=== PATIENT | female | born 1995 | race American Indian/Alaskan Native ===

== ENCOUNTER 2017-03-05 09:36 | Inpatient (IN) | payer BC ==
[2017-03-05] MEDS ORDERED: Vancomycin 1 g Inj ONE (09:59)
--- NOTE | 2017-03-05 10:11 | ED PDOC ---
HPI: Eye Injury/Pain Time Seen by Provider: 03/05/17 09:50 Chief Complaint (Nursing): Abnormal Skin Integrity Chief Complaint (Provider): Abnormal Skin Integrity History Per: Patient History/Exam Limitations: no limitations Onset/Duration Of Symptoms: Hrs Current Symptoms Are (Timing): Still Present Injury To Eye?: No Severity: Severe Quality: "Pain" Wears Contact Lens?: No Associated Symptoms: Pain, Decreased Vision, Swelling, Discharge From Eye Additional Complaint(s): Patient is a 21 year old female who presents to ED for left eye swelling and pain that worsened this morning. Patient states symptoms began as a mild rash to left upper lip 3 days ago but has gradually worsened, this morning awoke with right eye completely swollen and a diffuse itchy rash. Denies blurred vision or ear pain. Notes she was evaluated by Urgent care this morning, believed to be infectious, not allergic but administered Benadryl 50mg IM due to urticaria type rash. Patient denies headache, neck pain or fever. Past Medical History Reviewed: Historical Data, Nursing Documentation, Vital Signs Vital Signs: Last Vital Signs Temp 97.9 F 03/05/17 09:51 Pulse 104 H 03/05/17 09:51 Resp 18 03/05/17 09:51 BP 123/75 03/05/17 09:51 Pulse Ox 99 03/05/17 09:51 - Medical History PMH: No Chronic Diseases Denies: Chronic Kidney Disease - Surgical History Surgical History: Tonsillectomy - Family History Family History: States: No Known Family Hx - Living Arrangements Living Arrangements: With Family - Home Medications Home Medications: Ambulatory Orders Medication Instructions Recorded No Known Home Med 03/05/17 - Allergies Allergies/Adverse Reactions: Allergies Allergy/AdvReac Type Severity Reaction Status Date / Time fluconazole [From Diflucan] Allergy RASH Verified 03/05/17 09:50 Blackberries Allergy RASH Uncoded 03/05/17 09:51 Rasberries Allergy RASH Uncoded 03/05/17 09:51 Review of Systems ROS Statement: Except As Marked, All Systems Reviewed And Found Negative Constitutional: Negative for: Fever, Chills Eyes: Positive for: Pain, Eyelid Inflammation, Redness ENT: Negative for: Ear Pain, Nose Discharge Respiratory: Negative for: Shortness of Breath Musculoskeletal: Negative for: Neck Pain Skin: Positive for: Rash Neurological: Negative for: Weakness, Numbness, Headache Physical Exam - Reviewed Nursing Documentation Reviewed: Yes Vital Signs Reviewed: Yes - Physical Exam Appears: Positive for: Uncomfortable Skin: Positive for: Normal Color, Warm, Rash (mild scattered rash to chest and bilateral eyes ) Eye Exam: Positive for: Normal appearance (right), EOMI, PERRL, Periorbital swelling (Left: with erythema), Periorbital tenderness (left), Other (No proptosis, no pain with EOM). Negative for: Nystagmus, Conjunctival injection, Scleral icterus ENT: Negative for: Normal ENT Inspection (Honey crusted lesion to left lateral lip) Cardiovascular/Chest: Positive for: Regular Rate, Rhythm. Negative for: Murmur Respiratory: Positive for: Normal Breath Sounds. Negative for: Respiratory Distress Extremity: Positive for: Normal ROM Neurologic/Psych: Positive for: Alert, Oriented - Laboratory Results Result Diagrams: 03/08/17 06:10 03/08/17 06:10 - ECG O2 Sat by Pulse Oximetry: 99 (RA) Pulse Ox Interpretation: Normal - CT Scan/US CT orbits Other Rad Studies (CT/US): Radiology Report Reviewed (Significant left-sided facial soft tissue swelling consistent with cellulitis. Epicenter is located the periorbital region although does extend extend inferiorly into the left premaxillary soft tissues, laterally into the left lateral periorbital soft tissues and superiorly into the left supraorbital and left frontotemporal scalp. No evidence of abscess collection of. No definitive of postseptal extension.) Medical Decision Making Medical Decision Making: Time: 0950 Initial impression: Eye swelling r/o infectious vs allergic Initial plan: -- CT- orbits/facial -- CMP -- Urine preg -- CBC -- PT/PTT -- Blood culture -- Vanco IV Scribe Attestation: Documented by Magui Coelho acting as a scribe for Nelida Prajapati MD MD Scribe Attestation: All medical record entries made by the Scribe were at my direction and personally dictated by me. I have reviewed the chart and agree that the record accurately reflects my personal performance of the history, physical exam, medical decision making, and the department course for this patient. I have also personally directed, reviewed, and agree with the discharge instructions and disposition. Disposition - Clinical Impression Clinical Impression: Periorbital cellulitis of left eye - Patient ED Disposition Is Patient to be Admitted: Yes - Disposition Disposition Time: 14:35 Condition: STABLE - Pt Status Changed To: Hospital Disposition Of: Inpatient - Admit Certification Admit to Inpatient:: After my assessment, the patient will require hospitalization for at least two midnights. This is because of the severity of symptoms shown, intensity of services needed, and/or the medical risk in this patient being treated as an outpatient. - POA Present On Arrival: None
[2017-03-05 10:42] LABS: BASO # 0.1 K/uL (0.0-0.2); BASO % 0.7 % (0.0-2.0); EOS # 0.5 K/uL (0.0-0.7); EOS % 4.9 % (0.0-4.0); HEMATOCRIT 42.8 % (34.0-47.0); LYMPH % 39.1 % (20.0-40.0); MEAN CELL VOLUME 88.7 fl (81.0-99.0); MEAN CORPUSCULAR HEMOGLOBIN 29.2 pg (27.0-31.0); MEAN CORPUSCULAR HGB CONC 32.9 g/dL (33.0-37.0); MEAN PLATELET VOLUME 8.5 fl (7.2-11.7); MONO # 0.6 K/uL (0.0-0.8); MONO % 6.3 % (0.0-10.0); RED CELL DISTRIBUTION WIDTH 12.7 % (11.5-14.5); WHITE BLOOD COUNT 10.1 K/uL (4.8-10.8)
[2017-03-05 10:56] LABS: ALB/GLOB RATIO 1.1 (1.0-2.1); ALKALINE PHOSPHATASE 67 U/L (38-126); ALT/SGPT 63 U/L (9-52); AST/SGOT 43 U/L (14-36); BILIRUBIN,TOTAL 0.4 mg/dl (0.2-1.3); BLOOD UREA NITROGEN 14 mg/dl (7-17); CALCIUM 9.7 mg/dL (8.4-10.2); CARBON DIOXIDE 26 mmol/L (22-30); CHLORIDE 103 mmol/L (98-107); GFR AFRICAN-AMERICAN > 60; GLUCOSE,RANDOM 83 mg/dL (65-105); POTASSIUM 4.1 MMOL/L (3.6-5.0); SODIUM 140 mmol/l (132-148); TOTAL PROTEIN 8.4 G/DL (6.3-8.2)
[2017-03-05] MEDS ORDERED: Iohexol 300 100 ML IJ ONE (12:36)
[2017-03-05] MEDS ORDERED: Sodium Chloride 0.9% 50 ML IV ONE (12:37)
--- NOTE | 2017-03-05 14:16 | CT ---
PROCEDURE: CT scan orbits dated 03/05/2017 HISTORY: Left-sided periorbital edema -cellulitis. COMPARISON: None available. TECHNIQUE: Contiguous helical/ transaxial l CT images of the orbits were obtained of following intravenous injection of approximately 90 cc Omnipaque 300 contrast material. . Coronal and sagittal reformats were generated. Radiation dose: Total exam DLP = 752.09 mGy-cm. This CT exam was performed using one or more of the following dose reduction techniques: Automated exposure control, adjustment of the mA and/or kV according to patient size, and/or use of iterative reconstruction technique. FINDINGS: The current study reveals moderate to fairly significant left-sided facial soft tissue swelling, the epicenter of which appears to be in the left periorbital soft tissues with extension inferiorly into the left premaxillary region as well left lateral the periorbital and left supraorbital/ frontotemporal soft tissues. All of these inflammatory changes appear to be the preseptal with no definitive postseptal extension. No definitive on abscess collections are identified. Bony orbits appear intact. Globes intact and lenses appropriately located. No retrobulbar hemorrhages or collections. Optic nerves and extraocular musculature appear unremarkable. The visualized paranasal sinuses relatively well-developed. There are no fluid levels seen to suggest acute sinusitis or hemorrhage. Minor mucosal thickening seen within the maxillary antra left slightly more so than right of. The remaining visualized paranasal sinuses are otherwise free of any significant mucoperiosteal inflammatory changes. No bony destructive or sclerotic changes. . The sinus drainage outflow tracts are patent. Nasal septum midline. Impression: Significant left-sided facial soft tissue swelling consistent with cellulitis. Epicenter is located the periorbital region although does extend extend inferiorly into the left premaxillary soft tissues, laterally into the left lateral periorbital soft tissues and superiorly into the left supraorbital and left frontotemporal scalp. No evidence of abscess collection of. No definitive of postseptal extension. See above discussion for additional findings and details.
--- NOTE | 2017-03-05 15:04 | CP.PCM.HP ---
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 No WBC, afebrile, renal funtion high normal. Vitals are stable no acute distress. ROS: as per HPI, all other systems reviewed and negative by me PMH: denies PSH: denies Family History: denies Social History: denies tobacco, ETOH, IVDU Home Medications: control Allergies: fluconazole, blackberries and raspberries Vitals stable and reviewed Constitutional- cooperative, awake, alert. Head- L periorbital swelling, closing eye, no visual changes. Mouth, honey crusted lesions. Eye- PERRL, normal accommodation ENT- normal exam, MMM. Neck- normal inspection, supple, no JVD Respiratory- decreased BS, no wheezes rales rhonchi Cardiovascular- RRR, +S1, +S2 no MRG GI/Abdominal- normal bowel sounds, soft Extremities Exam- normal capillary refill, normal inspection Neurological Exam- alert, oriented Labs: 03/05/17 10:10 03/05/17 10:10 Imaging Studies: Facial Bones CT: Significant L sided facial soft tissue swelling consistent with cellulitis. 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 No WBC, afebrile, renal funtion high normal. Impetigo and L Periorbital and Facial Cellulitis No WBC afebrile Facial Bones CT: Significant L sided facial soft tissue swelling consistent with cellulitis. Continue Vancomycin 1gm q12 H Patient does not complain of pain Ophtalmology Consult Dr. Herrera Present on Admission - Present on Admission Any Indicators Present on Admission: No Past Patient History - Past Social History Smoking Status: Never Smoked - CARDIAC Hx Cardiac Disorders: No - PULMONARY Hx Respiratory Disorders: No - NEUROLOGICAL Hx Neurological Disorder: No - HEENT Hx HEENT Problems: No - RENAL Hx Chronic Kidney Disease: No - ENDOCRINE/METABOLIC Hx Endocrine Disorders: No - HEMATOLOGICAL/ONCOLOGICAL Hx Blood Disorders: No - INTEGUMENTARY Hx Dermatological Problems: No - MUSCULOSKELETAL/RHEUMATOLOGICAL Hx Musculoskeletal Disorders: No - GASTROINTESTINAL Hx Gastrointestinal Disorders: No - GENITOURINARY/GYNECOLOGICAL Hx Genitourinary Disorders: No - PSYCHIATRIC Hx Psychophysiologic Disorder: No Hx Substance Use: No - SURGICAL HISTORY Hx Tonsillectomy: Yes - ANESTHESIA Hx Anesthesia: Yes Hx Anesthesia Reactions: No Meds Allergies/Adverse Reactions: Allergies Allergy/AdvReac Type Severity Reaction Status Date / Time fluconazole [From Diflucan] Allergy RASH Verified 03/05/17 09:50 Blackberries Allergy RASH Uncoded 03/05/17 09:51 Rasberries Allergy RASH Uncoded 03/05/17 09:51 Results - Vital Signs Recent Vital Signs: Last Vital Signs Temp 97.9 F 03/05/17 09:51 Pulse 104 H 03/05/17 09:51 Resp 18 03/05/17 09:51 BP 123/75 03/05/17 09:51 Pulse Ox 99 03/05/17 13:27 - Labs Result Diagrams: 03/05/17 10:10 03/05/17 10:10
[2017-03-05] MEDS ORDERED: methylPREDNISolone 125 MG in Sodium Chloride 0.9% 50 ML IVPB STA (18:26)
[2017-03-05] MEDS ORDERED: Piperacillin/Tazobact 3.375 GM in Sodium Chloride 0.9% 100 ML IVPB STA (18:58)
[2017-03-05] MEDS: Tobramycin 0.3% OPH OINT OS SCH (20:57)
[2017-03-06] MEDS: Piperacillin/Tazobact 3.375 GM in Sodium Chloride 0.9% 100 ML IVPB SCH ×3 (04:33→20:34)
[2017-03-06 07:08] LABS: BASO % 0.3 % (0.0-2.0); HEMATOCRIT 41.1 % (34.0-47.0); MEAN CELL VOLUME 88.8 fl (81.0-99.0); MEAN CORPUSCULAR HEMOGLOBIN 29.2 pg (27.0-31.0); MEAN CORPUSCULAR HGB CONC 32.9 g/dL (33.0-37.0); MONO # 0.2 K/uL (0.0-0.8); MONO % 1.5 % (0.0-10.0); NEUT # 8.8 K/uL (1.8-7.0); NEUT % 88.2 % (50.0-75.0); RED CELL DISTRIBUTION WIDTH 12.6 % (11.5-14.5)
[2017-03-06 07:35] LABS: BLOOD UREA NITROGEN 14 mg/dl (7-17); CALCIUM 9.7 mg/dL (8.4-10.2); CARBON DIOXIDE 23 mmol/L (22-30); CHLORIDE 103 mmol/L (98-107); GFR AFRICAN-AMERICAN > 60; GLUCOSE,RANDOM 118 mg/dL (65-105); POTASSIUM 4.2 MMOL/L (3.6-5.0); SODIUM 138 mmol/l (132-148)
[2017-03-06] MEDS: Tobramycin 0.3% OPH OINT OS SCH ×3 (08:44→17:08)
--- NOTE | 2017-03-06 09:05 | CP.PCM.PN ---
Subjective - Date & Time of Evaluation Date of Evaluation: 03/06/17 Time of Evaluation: 09:04 - Subjective Subjective: PATIENT SEEN EXAMINED BEDSIDE FACIAL SWELLING IMPROVING ON L SIDE, MILD SPREADING TO R SIDE OF FACE. OTHERWISE NO COMPLAINTS VITALS REVIEWED Objective - Vital Signs/Intake and Output Vital Signs (last 24 hours): Temp Pulse Resp BP Pulse Ox 97.5 F L 65 20 118/73 99 03/06/17 08:09 03/06/17 08:09 03/06/17 08:09 03/06/17 08:09 03/06/17 08:09 Constitutional- cooperative, awake, alert. Head- L periorbital swelling, closing eye, no visual changes. Mouth, honey crusted lesions. IMPROVING on L side, however R side spread, mildly. Eye- PERRL, normal accommodation ENT- normal exam, MMM. Neck- normal inspection, supple, no JVD Respiratory- decreased BS, no wheezes rales rhonchi Cardiovascular- RRR, +S1, +S2 no MRG GI/Abdominal- normal bowel sounds, soft Extremities Exam- normal capillary refill, normal inspection Neurological Exam- alert, oriented - Medications Medications: Current Medications Diphenhydramine HCl (Benadryl) 25 mg PO TID [facility] Last Admin: 03/06/17 08:40 Dose: 25 mg Vancomycin HCl 1 gm/ Sodium (Chloride) 250 mls @ 166.667 mls/hr IVPB Q12 [facility] Last Admin: 03/06/17 08:44 Dose: 166.667 mls/hr Piperacillin Sod/Tazobactam (Sod 3.375 gm/ Sodium Chloride) 100 mls @ 100 mls/ hr IVPB Q8@0500,1300,2100 [facility] Last Admin: 03/06/17 04:33 Dose: 100 mls/hr Mupirocin (Bactroban Ointment) 1 applic TOP BID [facility] Last Admin: 03/05/17 17:22 Dose: 1 applic Tobramycin Sulfate (Tobrex 0.3% Ophth Oint) 1 appl OS TID [facility] Last Admin: 03/06/17 08:44 Dose: 1 applic - Labs Labs: 03/06/17 06:30 03/06/17 06:30 PT 10.2 SECONDS (9.6-11.2) 03/05/17 10:10 INR 0.98 (0.92-1.08) 03/05/17 10:10 APTT 26.0 SECONDS (23.3-32.5) 03/05/17 10:10 Assessment and Plan - Assessment and Plan (Free Text) Plan: Assessment and Plan: 21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 No WBC, afebrile, renal funtion high normal. Impetigo and L Periorbital and Facial Cellulitis No WBC afebrile Improving L side, mild R sided spread Facial Bones CT: Significant L sided facial soft tissue swelling consistent with cellulitis. Continue Vancomycin 1gm q12 H Added Zosyn yesterday Bactroban/Tobra topical Patient does not complain of pain Ophtalmology Consult Dr. Herrera Infectious Disease Consult Dr. Lara SCDs VTE ppx
[2017-03-06 09:32] LABS: ALB/GLOB RATIO 1.1 (1.0-2.1); BILIRUBIN,TOTAL 0.5 mg/dl (0.2-1.3); TOTAL PROTEIN 7.7 G/DL (6.3-8.2)
--- NOTE | 2017-03-06 13:42 | CP.PCM.CON ---
History of Present Illness - History of Present Illness History of Present Illness: 21 year old female presents to ED for left eye swelling and pain that worsened on the day of admission. Patient states symptoms began as a mild rash to left upper lip 3 days [employer] but has gradually worsened, this morning awoke with right eye completely swollen and an itchy rash. 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 Rash is located on right arm, upper chest on both sides left upper lip and right cheek as well as left forehead and cheek Left eye is swollen shut but no evidence of lesions on conjunctiva Pupils are reactive and EOMI rash consists of tiny vesicles with red base ++ edema rash is painless but itchy as per patient Review of Systems - Constitutional Constitutional: As Per HPI - EENT Eyes: absent: As Per HPI, Blind Spots, Blurred Vision, Change in Vision, Decreased Night Vision, Diplopia, Discharge, Dry Eye, Exophthalmos, Floaters, Irritation, Itchy Eyes, Loss of Peripheral Vision, Pain, Photophobia, Requires Corrective Lenses, Sees Flashes, Spots in Vision, Tunnel Vision, Other Visual Disturbances, Loss of Vision, Other Ears: absent: As Per HPI, Decreased Hearing, Ear Discharge, Ear Pain, Tinnitus, Abnormal Hearing, Disequilibrium, Dizziness, Other - Breasts Breasts: absent: As Per HPI, Change in Shape, Mass, Pain, Nipple Discharge, Nipple Inversion, Skin Changes, Swelling, Other - Cardiovascular Cardiovascular: absent: As Per HPI, Acrocyanosis, Chest Pain, Chest Pain at Rest , Chest Pain with Activity, Claudication, Diaphoresis, Dyspnea, Dyspnea on Exertion, Edema, Irregular Heart Rhythm, Pain Radiating to Arm/Neck/Jaw, Leg Edema, Leg Ulcers, Lightheadedness, Orthopnea, Palpitations, Paroxysmal Nocturnal Dyspnea, Pedal Edema, Radiating Pain, Rapid Heart Rate, Slow Heart Rate, Syncope, Other - Respiratory Respiratory: absent: As Per HPI, Cough, Dyspnea, Hemoptysis, Dyspnea on Exertion , Wheezing, Snoring, Stridor, Pain on Inspiration, Chest Congestion, Excessive Mucous Production, Change in Mucous Color, Pain with Coughing, Other - Gastrointestinal Gastrointestinal: absent: As Per HPI, Abdominal Pain, Belching, Bloating, Change in Bowel Habits, Change in Stool Character, Coffee Ground Emesis, Constipation, Cramping, Diarrhea, Dyspepsia, Dysphagia, Early Satiety, Excessive Flatus, Fecal Incontinence, Heartburn, Hematemesis, Hematochezia, Loose Stools, Melena, Nausea, Odynophagia, Temesmus, Vomiting, Other - Genitourinary Genitourinary: absent: As Per HPI, Change in Urinary Stream, Difficulty Urinating, Dysuria, Flank Pain, Hematuria, Pyuria, Nocturia, Urinary Incontinence, Urinary Frequency, Urinary Hesitance, Urinary Urgency, Voiding Freq/Small Amts, Freq UTI, Hx Renal/Bladder Calculi, Hx /Renal Surgery, Bladder Distension, Other - Reproductive: Female Reproductive:Female: absent: As Per HPI, Amenorrhea, Amenorrhea/ Control, Currently Menstual, Cycle <21 Days, Cycle >35 Days, Cycle Variable, Menses 1-7 Days, Menses >/= 8 Days, Menses Variable, Cycle > 4 Weeks Between, No Menses for 6 Months, Heavy Menses, Light Menses, Normal Menses, Spotting Between Cycles , S/P Hysterectomy, Menopausal, Post Menopausal, Premenarche, Abnormal Vaginal Bleeding, Dysmenorrhea, Dyspareunia, Genital Lesions, Genital Pruritis, Pelvic Pain, Prolapse Symptoms, Sexual Dysfunction, Vaginal Discharge, Vaginal Dryness , Vaginal Odor, Vaginal Pruritis, Other - Menstruation Menstruation: absent: As Per HPI, Amenorrhea, Amenorrhea/ Control, Currently Menstual, Cycle <21 Days, Cycle >35 Days, Cycle Variable, Menses 1-7 Days, Menses >/= 8 Days, Menses Variable, Cycle > 4 Weeks Between, No Menses for 6 Months, Heavy Menses, Light Menses, Normal Menses, Spotting Between Cycles , S/P Hysterectomy, Menopausal, Post Menopausal, Premenarche, Abnormal Vaginal Bleeding, Dysmenorrhea, Other - Musculoskeletal Musculoskeletal: absent: As Per HPI, Abnormal Gait, Arthralgias, Atrophy, Back Pain, Deformity, Joint Swelling, Limited Range of Motion, Loss of Height, Muscle Cramps, Muscle Weakness, Myalgias, Neck Pain, Numbness, Radiating Pain into Limb, Stiffness, Tingling, Other - Integumentary Integumentary: As Per HPI - Neurological Neurological: absent: As Per HPI, Abnormal Gait, Abnormal Hearing, Abnormal Movements, Abnormal Speech, Behavioral Changes, Burning Sensations, Confusion, Convulsions, Disequilibrium, Dizziness, Numbness, Focal Weakness, Frequent Falls , Headaches, Lack of Coordination, Loss of Vision, Memory Loss, Paresthesias, Radicular Pain, Restless Legs, Sensory Deficit, Syncope, Tingling, Tremor, Vertigo, Weakness, Other Visual Disturbances, Other - Psychiatric Psychiatric: absent: As Per HPI, Abnormal Sleep Pattern, Anhedonia, Anxiety, Auditory Hallucinations, Behavioral Changes, Change in Appetite, Change in Libido, Confusion, Depression, Difficulty Concentrating, Hallucinations, Homicidal Ideation, Hopelessness, Irritability, Memory Loss, Mood Swings, Panic Attacks, Paranoia, Suicidal Ideation, Visual Hallucinations, Tactile Hallucinations, Other - Endocrine Endocrine: absent: As Per HPI, Change in Body Appearance, Change in Libido, Cold Intolorance, Deepening of Voice, Excessive Sweating, Fatigue, Flushing, Heat Intolorance, Increase in Ring/Shoe/Hat Size, Palpitations, Polydipsia, Polyphagia, Polyuria, Other - Hematologic/Lymphatic Hematologic: absent: As Per HPI, Easy Bleeding, Easy Bruising, Lymphadenopathy, Other Past Patient History - Past Medical History & Family History Past Medical History?: No - Past Social History Smoking Status: Never Smoked - CARDIAC Hx Cardiac Disorders: No - PULMONARY Hx Respiratory Disorders: No - NEUROLOGICAL Hx Neurological Disorder: No - HEENT Hx HEENT Problems: No - RENAL Hx Chronic Kidney Disease: No - ENDOCRINE/METABOLIC Hx Endocrine Disorders: No - HEMATOLOGICAL/ONCOLOGICAL Hx Blood Disorders: No - INTEGUMENTARY Hx Dermatological Problems: No - MUSCULOSKELETAL/RHEUMATOLOGICAL Hx Musculoskeletal Disorders: No - GASTROINTESTINAL Hx Gastrointestinal Disorders: No - GENITOURINARY/GYNECOLOGICAL Hx Genitourinary Disorders: No - PSYCHIATRIC Hx Psychophysiologic Disorder: No - SURGICAL HISTORY Hx Surgeries: Yes Hx Tonsillectomy: Yes Other/Comment: extraction of 4 wisdom teeth - ANESTHESIA Hx Anesthesia: Yes Hx Anesthesia Reactions: No Hx Malignant Hyperthermia: No Has any member of the family had a problem w/ anesthesia?: No Meds Allergies/Adverse Reactions: Allergies Allergy/AdvReac Type Severity Reaction Status Date / Time fluconazole [From Diflucan] Allergy RASH Verified 03/05/17 09:50 Blackberries Allergy RASH Uncoded 03/05/17 09:51 Rasberries Allergy RASH Uncoded 03/05/17 09:51 - Medications Medications: Current Medications Diphenhydramine HCl (Benadryl) 25 mg PO TID [facility] Last Admin: 03/06/17 13:31 Dose: 25 mg Vancomycin HCl 1 gm/ Sodium (Chloride) 250 mls @ 166.667 mls/hr IVPB Q12 [facility] Last Admin: 03/06/17 08:44 Dose: 166.667 mls/hr Piperacillin Sod/Tazobactam (Sod 3.375 gm/ Sodium Chloride) 100 mls @ 100 mls/ hr IVPB Q8@0500,1300,2100 [facility] Last Admin: 03/06/17 13:21 Dose: 100 mls/hr Mupirocin (Bactroban Ointment) 1 applic TOP BID [facility] Last Admin: 03/06/17 09:42 Dose: 1 applic Tobramycin Sulfate (Tobrex 0.3% Ophth Oint) 1 appl OS TID [facility] Last Admin: 03/06/17 08:44 Dose: 1 applic Physical Exam - Constitutional Appears: Non-toxic - Head Exam Head Exam: ATRAUMATIC, NORMAL INSPECTION, NORMOCEPHALIC - Eye Exam Eye Exam: EOMI, Periorbital swelling, PERRL Additional comments: Rash is located on right arm, upper chest on both sides left upper lip and right cheek as well as left forehead and cheek Left eye is swollen shut but no evidence of lesions on conjunctiva Pupils are reactive and EOMI rash consists of tiny vesicles with red base ++ edema rash is painless but itchy as per patient - ENT Exam ENT Exam: Mucous Membranes Dry, Normal Oropharynx - Neck Exam Neck exam: Negative for: Lymphadenopathy, Thyromegaly - Respiratory Exam Respiratory Exam: Decreased Breath Sounds, Clear to Auscultation Bilateral - Cardiovascular Exam Cardiovascular Exam: REGULAR RHYTHM, +S1, +S2 - GI/Abdominal Exam GI & Abdominal Exam: Diminished Bowel Sounds, Soft. absent: Tenderness - Rectal Exam Rectal Exam: Deferred - Exam Exam: NORMAL INSPECTION - Extremities Exam Extremities exam: Positive for: pedal pulses present. Negative for: calf tenderness, pedal edema, tenderness - Back Exam Back exam: absent: CVA tenderness (L), CVA tenderness (R), paraspinal tenderness - Neurological Exam Neurological exam: Alert, CN II-XII Intact, Oriented x3, Reflexes Normal - Psychiatric Exam Psychiatric exam: Normal Mood - Skin Additional comments: Rash is located on right arm, upper chest on both sides left upper lip and right cheek as well as left forehead and cheek Left eye is swollen shut but no evidence of lesions on conjunctiva Pupils are reactive and EOMI rash consists of tiny vesicles with red base ++ edema rash is painless but itchy as per patient Results - Vital Signs Recent Vital Signs: Last Vital Signs Temp 97.5 F L 03/06/17 08:09 Pulse 65 03/06/17 08:09 Resp 20 03/06/17 08:09 BP 118/73 03/06/17 08:09 Pulse Ox 99 03/06/17 08:09 - Labs Result Diagrams: 03/06/17 06:30 03/06/17 06:30 Labs: Laboratory Results - last 24 hr 03/06/17 03/06/17 03/06/17 06:30 06:30 09:22 WBC 10.0 RBC 4.63 Hgb 13.5 Hct 41.1 MCV 88.8 MCH 29.2 MCHC 32.9 L RDW 12.6 Plt Count 382 MPV 9.0 Neut % (Auto) 88.2 H Lymph % (Auto) 10.0 L [place] % (Auto) 1.5 Eos % (Auto) 0.0 Baso % (Auto) 0.3 Neut # 8.8 H Lymph # 1.0 [place] # 0.2 Eos # 0.0 Baso # 0.0 Sodium 138 Potassium 4.2 Chloride 103 Carbon Dioxide 23 Anion Gap 17 BUN 14 Creatinine 1.1 Est GFR ( Amer) > 60 Est GFR (Non-Af Amer) > 60 Random Glucose 118 H Calcium 9.7 Total Bilirubin 0.5 Direct Bilirubin 0.2 AST 55 H D ALT 30 Alkaline Phosphatase 62 Total Creatine Kinase 463 H Total Protein 7.7 Albumin 4.1 Globulin 3.6 Albumin/Globulin Ratio 1.1 Assessment & Plan - Assessment and Plan (Free Text) Assessment: periorbital cellulitis- strep or staph with impetiginous features r/o contact dermatitis as inciting event cont IV antibiotics for now consider derm eval possible topical steroids/ benadryl
[2017-03-06] MEDS: DiphenhydrAMINE 50 mg/ml Inj IVP PRN (17:50)
[2017-03-06] MEDS: methylPREDNISolone 30 MG in Sodium Chloride 0.9% 50 ML IVPB SCH ×2 (17:50→21:35)
[2017-03-07] MEDS: DiphenhydrAMINE 50 mg/ml Inj IVP PRN (00:24)
[2017-03-07] MEDS: Piperacillin/Tazobact 3.375 GM in Sodium Chloride 0.9% 100 ML IVPB SCH ×3 (04:04→20:56)
[2017-03-07] MEDS: methylPREDNISolone 30 MG in Sodium Chloride 0.9% 50 ML IVPB SCH ×2 (05:17→17:46)
[2017-03-07 07:31] LABS: HEMATOCRIT 38.1 % (34.0-47.0); MEAN CELL VOLUME 88.6 fl (81.0-99.0); MEAN CORPUSCULAR HEMOGLOBIN 29.3 pg (27.0-31.0); MEAN CORPUSCULAR HGB CONC 33.1 g/dL (33.0-37.0); RED CELL DISTRIBUTION WIDTH 12.4 % (11.5-14.5); WHITE BLOOD COUNT 15.3 K/uL (4.8-10.8)
[2017-03-07 08:34] VITALS: RESP 20
[2017-03-07] MEDS: Tobramycin 0.3% OPH OINT OS SCH ×3 (09:43→17:48)
--- NOTE | 2017-03-07 10:50 | CP.PCM.PN ---
Subjective - Date & Time of Evaluation Date of Evaluation: 03/07/17 Time of Evaluation: 08:00 - Subjective Subjective: swelling and redness less no fever Objective - Vital Signs/Intake and Output Vital Signs (last 24 hours): Temp Pulse Resp BP Pulse Ox 98.6 F 76 20 116/65 100 03/07/17 08:33 03/07/17 08:33 03/07/17 08:33 03/07/17 08:33 03/07/17 08:33 - Medications Medications: Current Medications Betamethasone Valerate (Valisone) 1 applic TP BID [facility] Last Admin: 03/07/17 09:43 Dose: 1 applic Diphenhydramine HCl (Benadryl) 50 mg IVP Q6 PRN PRN Reason: Swelling Last Admin: 03/07/17 00:24 Dose: 50 mg Vancomycin HCl 1 gm/ Sodium (Chloride) 250 mls @ 166.667 mls/hr IVPB Q12 [facility] Last Admin: 03/07/17 09:40 Dose: 166.667 mls/hr Piperacillin Sod/Tazobactam (Sod 3.375 gm/ Sodium Chloride) 100 mls @ 100 mls/ hr IVPB Q8@0500,1300,2100 [facility] Last Admin: 03/07/17 04:04 Dose: 100 mls/hr Acyclovir 800 mg/ Sodium (Chloride) 250 mls @ 125 mls/hr IV Q8 [facility] Last Admin: 03/07/17 00:23 Dose: 125 mls/hr Methylprednisolone 30 mg/ (Sodium Chloride) 50 mls @ 100 mls/hr IVPB 0600,1800 [facility] Last Admin: 03/07/17 05:17 Dose: 100 mls/hr Mupirocin (Bactroban Ointment) 1 applic TOP BID [facility] Last Admin: 03/07/17 09:41 Dose: 1 applic Tobramycin Sulfate (Tobrex 0.3% Ophth Oint) 1 appl OS TID [facility] Last Admin: 03/07/17 09:43 Dose: 1 applic - Labs Labs: 03/07/17 06:35 03/06/17 06:30 PT 10.2 SECONDS (9.6-11.2) 03/05/17 10:10 INR 0.98 (0.92-1.08) 03/05/17 10:10 APTT 26.0 SECONDS (23.3-32.5) 03/05/17 10:10 - Constitutional Appears: Non-toxic, Chronically Ill - Head Exam Head Exam: NORMOCEPHALIC - Eye Exam Eye Exam: PERRL. absent: Scleral icterus - ENT Exam ENT Exam: Mucous Membranes Dry - Neck Exam Neck Exam: absent: Lymphadenopathy - Respiratory Exam Respiratory Exam: Decreased Breath Sounds - Cardiovascular Exam Cardiovascular Exam: REGULAR RHYTHM - GI/Abdominal Exam GI & Abdominal Exam: Distended, Soft - Rectal Exam Rectal Exam: Deferred - Exam Exam: NORMAL INSPECTION - Extremities Exam Extremities Exam: absent: Pedal Edema - Back Exam Back Exam: absent: CVA tenderness (L), CVA tenderness (R) - Neurological Exam Neurological Exam: Alert, Awake, Oriented x3 - Psychiatric Exam Psychiatric exam: Normal Mood - Skin Skin Exam: Erythema Assessment and Plan - Assessment and Plan (Free Text) Assessment: severe contact dermatitis cellulitis cont rx
--- NOTE | 2017-03-07 14:02 | CP.PCM.PN ---
Subjective - Date & Time of Evaluation Date of Evaluation: 03/07/17 Time of Evaluation: 13:50 - Subjective Subjective: Hospitalist Progress Note (Patient was seen and examined at 1:50 PM 03/07/17 654- 2 with parents present 21 year old female who presented on 03/05/17 with a 2 day history of moderate worsening of honey crusted lesions around the mouth and worsening severe left periorbital swelling. 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 Impetigo vs. Poison Rocio was suspected. ROS: No longer with pruritus and pain NOT moved bowels today (last was yesterday) NO other complaints upon FULL ROS Exam: HEENT: NCA, EOMI, PERRLA, NO pharyngeal erythema/exudate, NO cervical/ submandibular/supraclavicular lymphadenopathy, NO thyromegaly, Mucosa are moist Cardio: NS1 and NS2, NO M/R/G Respiratory: CTA B/L, NO R/R/W GI: BSx4, Soft, NT, ND, NO HSM, NO guarding/rebound tenderness Ext: NO edema, Capillary Refill is 2 seconds, Pulses are strong and equal Neuro: CN II throug XII are grossly intact Skin: Rash consistent with Contact Dermititis present bilateral subclavicular area, left anterior/lateral neck, left cheek, left mxillary area, left periorbital area, left external pinna ear with small scattered clear liquid bulla present with largest on left pinna. Left Facial and Neck edema, NO warmth and nontender to palpation. Assessment and Plan: 1). Impetigo/Poison Rocio with Secondary Cellulilitis Affecting areas documented on Skin Exam CT Facial Bones: Left sided facial soft tissue swelling consistent with cellulitis Hospitalist Dr. Sushma Apple spoke with Opthalmologist Dr. Herrera and Tobramycin 0.3% OS TID is recommended ID Dr. Lara Acyclovir was discontinued Mouth Wound Culture 03/05/17 showed Coagulase Negative Staph Zosyn 3.375 gm IV Q6H Vancomycin 1 gm IV Q12H Mupirocin 1 lilia TOP BID Benadryl 50 mg IV Q6H PRN Methylprednisone 30 mg IV Q12H (6 AM and 6 PM): likely the cause of elevation in WBC Betamethasone 1 lilia TOP BID If patient continues to improve then will likely discharge patient in the morning: with PO Clindamycin, Steroid Taper, Tobramycin Eye drop, Mupiricon topical, and with instructions to follow up with Opthalmologist in [place] 2). Prophylactic Measures Protonix 40 mg PO 1x/day Florastor 250 mg PO 1x/day Bilateral SCDs Objective - Vital Signs/Intake and Output Vital Signs (last 24 hours): Temp Pulse Resp BP Pulse Ox 98.6 F 76 20 116/65 100 03/07/17 08:33 03/07/17 08:33 03/07/17 08:33 03/07/17 08:33 03/07/17 08:33 - Medications Medications: Current Medications Betamethasone Valerate (Valisone) 1 applic TP BID [facility] Last Admin: 03/07/17 09:43 Dose: 1 applic Diphenhydramine HCl (Benadryl) 50 mg IVP Q6 PRN PRN Reason: Swelling Last Admin: 03/07/17 00:24 Dose: 50 mg Vancomycin HCl 1 gm/ Sodium (Chloride) 250 mls @ 166.667 mls/hr IVPB Q12 [facility] Last Admin: 03/07/17 09:40 Dose: 166.667 mls/hr Piperacillin Sod/Tazobactam (Sod 3.375 gm/ Sodium Chloride) 100 mls @ 100 mls/ hr IVPB Q8@0500,1300,2100 [facility] Last Admin: 03/07/17 13:35 Dose: 100 mls/hr Acyclovir 800 mg/ Sodium (Chloride) 250 mls @ 125 mls/hr IV Q8 [facility] Last Admin: 03/07/17 11:23 Dose: 125 mls/hr Methylprednisolone 30 mg/ (Sodium Chloride) 50 mls @ 100 mls/hr IVPB 0600,1800 [facility] Last Admin: 03/07/17 05:17 Dose: 100 mls/hr Mupirocin (Bactroban Ointment) 1 applic TOP BID [facility] Last Admin: 03/07/17 09:41 Dose: 1 applic Tobramycin Sulfate (Tobrex 0.3% Ophth Oint) 1 appl OS TID [facility] Last Admin: 03/07/17 13:43 Dose: 1 applic - Labs Labs: 03/07/17 06:35 03/06/17 06:30 PT 10.2 SECONDS (9.6-11.2) 03/05/17 10:10 INR 0.98 (0.92-1.08) 03/05/17 10:10 APTT 26.0 SECONDS (23.3-32.5) 03/05/17 10:10
[2017-03-07] MEDS: Saccharomyces Boulardi 250 mg Cap PO SCH (17:48)
[2017-03-07] MEDS: Pantoprazole 40 mg EC Tab PO SCH (22:15)
[2017-03-08] MEDS: Piperacillin/Tazobact 3.375 GM in Sodium Chloride 0.9% 100 ML IVPB SCH (05:20)
[2017-03-08] MEDS: methylPREDNISolone 30 MG in Sodium Chloride 0.9% 50 ML IVPB SCH (06:21)
[2017-03-08 07:22] LABS: BASO # 0.1 K/uL (0.0-0.2); BASO % 0.4 % (0.0-2.0); EOS # 0.3 K/uL (0.0-0.7); EOS % 1.3 % (0.0-4.0); HEMATOCRIT 37.7 % (34.0-47.0); LYMPH # 3.1 K/uL (1.0-4.3); MEAN CELL VOLUME 87.6 fl (81.0-99.0); MEAN CORPUSCULAR HEMOGLOBIN 29.7 pg (27.0-31.0); MEAN CORPUSCULAR HGB CONC 33.9 g/dL (33.0-37.0); MEAN PLATELET VOLUME 8.5 fl (7.2-11.7); MONO # 0.9 K/uL (0.0-0.8); MONO % 4.6 % (0.0-10.0); NEUT # 15.1 K/uL (1.8-7.0); NEUT % 77.7 % (50.0-75.0); RED CELL DISTRIBUTION WIDTH 12.4 % (11.5-14.5); WHITE BLOOD COUNT 19.4 K/uL (4.8-10.8)
[2017-03-08 07:36] LABS: ALB/GLOB RATIO 1.1 (1.0-2.1); ALKALINE PHOSPHATASE 50 U/L (38-126); ALT/SGPT 34 U/L (9-52); AST/SGOT 26 U/L (14-36); BILIRUBIN,TOTAL 0.4 mg/dl (0.2-1.3); BLOOD UREA NITROGEN 14 mg/dl (7-17); CALCIUM 9.2 mg/dL (8.4-10.2); CARBON DIOXIDE 25 mmol/L (22-30); CHLORIDE 102 mmol/L (98-107); GFR AFRICAN-AMERICAN > 60; GLUCOSE,RANDOM 86 mg/dL (65-105); POTASSIUM 4.4 MMOL/L (3.6-5.0); SODIUM 136 mmol/l (132-148); TOTAL PROTEIN 7.2 G/DL (6.3-8.2)
[2017-03-08 08:24] VITALS: BP 118/68; PULSE 70; TEMP 98.8
[2017-03-08] MEDS: Tobramycin 0.3% OPH OINT OS SCH (09:53)
[2017-03-08] MEDS: Saccharomyces Boulardi 250 mg Cap PO SCH (09:54)
[2017-03-08] MEDS: Pantoprazole 40 mg EC Tab PO SCH (09:54)
--- NOTE | 2017-03-08 11:06 | CP.PCM.DIS ---
Provider - Provider Date of Admission: 03/05/17 14:35 Attending physician: Sushma Apple DO Primary care physician: Robert Mejia Consults: ID Dr. Rich Lara Time Spent in preparation of Discharge (in minutes): 40 Diagnosis - Discharge Diagnosis (1) Contact dermatitis and eczema due to plant Status: Acute Hospital Course - Lab Results Lab Results: Micro Results 03/06/17 19:14 Eye - Left Gram Stain - Final 03/06/17 19:14 Eye - Left Wound Culture - Preliminary NO GROWTH AFTER 24 HOURS 03/05/17 15:00 Blood-Venous Blood Culture - Preliminary NO GROWTH AFTER 48 HOURS 03/05/17 15:49 Mouth Gram Stain - Final 03/05/17 15:49 Mouth Wound Culture - Final Coagulase Neg Staphylococcus Most Recent Lab Values WBC 19.4 K/uL (4.8-10.8) H 03/08/17 06:10 RBC 4.31 Mil/uL (3.80-5.20) 03/08/17 06:10 Hgb 12.8 g/dL (12.0-16.0) 03/08/17 06:10 Hct 37.7 % (34.0-47.0) 03/08/17 06:10 MCV 87.6 fl (81.0-99.0) 03/08/17 06:10 MCH 29.7 pg (27.0-31.0) 03/08/17 06:10 MCHC 33.9 g/dL (33.0-37.0) 03/08/17 06:10 RDW 12.4 % (11.5-14.5) 03/08/17 06:10 Plt Count 363 K/uL (130-400) 03/08/17 06:10 MPV 8.5 fl (7.2-11.7) 03/08/17 06:10 Neut % (Auto) 77.7 % (50.0-75.0) H 03/08/17 06:10 Lymph % (Auto) 16.0 % (20.0-40.0) L 03/08/17 06:10 Franklin % (Auto) 4.6 % (0.0-10.0) 03/08/17 06:10 Eos % (Auto) 1.3 % (0.0-4.0) 03/08/17 06:10 Baso % (Auto) 0.4 % (0.0-2.0) 03/08/17 06:10 Neut # 15.1 K/uL (1.8-7.0) H 03/08/17 06:10 Lymph # 3.1 K/uL (1.0-4.3) 03/08/17 06:10 Franklin # 0.9 K/uL (0.0-0.8) H 03/08/17 06:10 Eos # 0.3 K/uL (0.0-0.7) 03/08/17 06:10 Baso # 0.1 K/uL (0.0-0.2) 03/08/17 06:10 PT 10.2 SECONDS (9.6-11.2) 03/05/17 10:10 INR 0.98 (0.92-1.08) 03/05/17 10:10 APTT 26.0 SECONDS (23.3-32.5) 03/05/17 10:10 Sodium 136 mmol/l (132-148) 03/08/17 06:10 Potassium 4.4 MMOL/L (3.6-5.0) 03/08/17 06:10 Chloride 102 mmol/L (98-107) 03/08/17 06:10 Carbon Dioxide 25 mmol/L (22-30) 03/08/17 06:10 Anion Gap 14 (10-20) 03/08/17 06:10 BUN 14 mg/dl (7-17) 03/08/17 06:10 Creatinine 0.9 mg/dL (0.7-1.2) 03/08/17 06:10 Est GFR ( Amer) > 60 03/08/17 06:10 Est GFR (Non-Af Amer) > 60 03/08/17 06:10 Random Glucose 86 mg/dL (65-105) 03/08/17 06:10 Calcium 9.2 mg/dL (8.4-10.2) 03/08/17 06:10 Total Bilirubin 0.4 mg/dl (0.2-1.3) 03/08/17 06:10 Direct Bilirubin 0.2 mg/ml (0.0-0.4) 03/06/17 09:22 AST 26 U/L (14-36) 03/08/17 06:10 ALT 34 U/L (9-52) 03/08/17 06:10 Alkaline Phosphatase 50 U/L (38-126) 03/08/17 06:10 Total Creatine Kinase 463 U/L (30-135) H 03/06/17 06:30 Total Protein 7.2 G/DL (6.3-8.2) 03/08/17 06:10 Albumin 3.7 g/dL (3.5-5.0) 03/08/17 06:10 Globulin 3.4 gm/dL (2.2-3.9) 03/08/17 06:10 Albumin/Globulin Ratio 1.1 (1.0-2.1) 03/08/17 06:10 Vancomycin Trough 6.6 ug/mL (5.0-10.0) 03/06/17 20:15 HIV 1&2 Antibody Screen Negative (NEGATIVE) 03/07/17 06:35 - Hospital Course Hospital Course: 21 year old female who presented on 03/05/17 with a 2 day history of moderate worsening of honey crusted lesions around the mouth and worsening severe left periorbital swelling. 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 Impetigo vs. Poison Rocio was suspected. As the edema and her presenting symptoms have improved, patient is stable for discharge. Please see assessment and plan below for summary of treatment while in-patient and discharge instructions below. ROS: No longer with pruritus and pain NOT moved bowels today (last was yesterday) NO other complaints upon FULL ROS Exam: HEENT: NCA, EOMI, PERRLA, NO pharyngeal erythema/exudate, NO cervical/ submandibular/supraclavicular lymphadenopathy, NO thyromegaly, Mucosa are moist Cardio: NS1 and NS2, NO M/R/G Respiratory: CTA B/L, NO R/R/W GI: BSx4, Soft, NT, ND, NO HSM, NO guarding/rebound tenderness Ext: NO edema, Capillary Refill is 2 seconds, Pulses are strong and equal Neuro: CN II throug XII are grossly intact Skin: Rash consistent with Contact Dermititis present bilateral subclavicular area, left anterior/lateral neck, left cheek, left mxillary area, left periorbital area, left external pinna ear with small scattered clear liquid bulla present with largest on left pinna. Left Facial and Neck edema, NO warmth and nontender to palpation. Assessment and Plan: 1). Impetigo/Poison Rocio with Secondary Cellulilitis Affecting areas documented on Skin Exam CT Facial Bones: Left sided facial soft tissue swelling consistent with cellulitis Hospitalist Dr. Sushma Apple spoke with Opthalmologist Dr. Herrera and Tobramycin 0.3% OS TID is recommended ID Dr. Lara Acyclovir was discontinued Mouth Wound Culture 03/05/17 showed Coagulase Negative Staph Zosyn 3.375 gm IV Q6H Vancomycin 1 gm IV Q12H Mupirocin 1 lilia TOP BID Benadryl 50 mg IV Q6H PRN Methylprednisone 30 mg IV Q12H (6 AM and 6 PM): likely the cause of elevation in WBC Betamethasone 1 lilia TOP BID 2). Prophylactic Measures Protonix 40 mg PO 1x/day Florastor 250 mg PO 1x/day Bilateral SCDs The following instructions were provided to patient in the form of this discharge summary: 1). Start the following medications on 03/09/17 for which you were provided with prescriptions: Tobramycin 0.3% Opthalmic Drops, 1 drop to the Left Eye every 6 hours for 7 days Clindamycin 300 mg, 1 tablet by mouth every 8 hours until finished Prednisone 10 mg, 7 tablets by mouth all at once on 03/09/17, 6 tablets all at once on 03/10/17, 5 tablets all at once on 03/11/17, 4 tablets all at once on 03/12/17 , 3 tablets all at once on 03/13/17, 2 tablet all at once on 03/14/17, 1 tablet all at once on 03/15/17. 2). Please make sure to take the Prednisone with some food and drink plenty of water. 3). Please make sure to follow up with your Primary Care Physician after completion of the prescription to make sure that there is resolution of the rash. Follow up with him/her earlier if there is a worsening. 4). Please make sure to follow up with an Opthalmologist for examination of your eyes after completion of treatment. 5). Please bring a copy of this discharge summary with you to your follow up appoitnments with your Primary Care Physician and Opthalmologist for their review. 6). Please make sure to take a probiotic for the next 40 days. The dose of your probiotic should not be taken within 2 hours of your Clindamycin Antibiotic dose. You may ask your pharmacist which probiotic they recommend and this does not require a prescription. 7). Have a safe flight back home and please take care and be happy. Erlin Lindsey D.O. Discharge Exam - Head Exam Head Exam: NORMOCEPHALIC Discharge Plan - Follow Up Plan Condition: FAIR Disposition: HOME/ ROUTINE Instructions: Impetigo (DC), Cellulitis (DC)
[2017-03-08 15:19] VITALS: O2SAT 99
== END 2017-03-08 12:32 | disposition home or self-care (01) | DRG 603 ==
LOC: H.ER 09:36 → H.ERHOLD 14:35 → H.MEDSURG1 15:49
PROVIDERS: ADMIT Student in an Organized Health Care Education/Training Program; ATTEND Student in an Organized Health Care Education/Training Program
DX: L03.213 Periorbital cellulitis (principal); M62.82 Rhabdomyolysis; L03.211 Cellulitis of face; L01.00 Impetigo, unspecified; L23.7 Allergic contact dermatitis due to plants, except food